=== PATIENT | female | born 1985 | race African-American/Black ===

== ENCOUNTER 2018-04-06 04:13 | Emergency (ER) | payer MEDICAID ==
[2018-04-06] MEDS: ONDANSETRON (ODT) 4 MG TAB ODT (05:02)
[2018-04-06] MEDS: PROMETHAZINE/DM (CUP) PO (05:02)
[2018-04-06] MEDS: ACETAMINOPHEN 500 MG TAB PO ×2 (05:02→05:07)
[2018-04-06] MEDS ORDERED: ONDANSETRON (ODT) 4 MG TAB ODT (05:10)
[2018-04-06] MEDS: METOCLOPRAMIDE 10 MG INJ IM (05:19)
== END 2018-04-06 06:20 | disposition home or self-care (01) ==
LOC: FTE 04:13
DX: J10.1 Influenza due to other identified influenza virus with other respiratory manifestations (principal); F17.210 Nicotine dependence, cigarettes, uncomplicated
CPT/HCPCS: 96372; 99284-25

== ENCOUNTER 2018-04-06 07:41 | Emergency (ER) | payer MEDICAID ==
[2018-04-06] MEDS: SOD CHLORIDE 0.9% 1,000 ML IV (08:35)
[2018-04-06] MEDS: ONDANSETRON 4 MG INJ IV (08:35)
[2018-04-06 08:36] LABS: WHITE BLOOD COUNT 10.3 10^3/ul (4.8-10.8)
[2018-04-06 08:36] LABS: ADD MAN DIFF? NO; BASOPHIL # 0.1 10^3/ul (0.0-0.1); BASOPHILS % 0.8 % (0.0-2.0); EOSINOPHILS % 0.2 % (0.0-7.0); HEMATOCRIT 46.9 % (37.0-47.0); HEMOGLOBIN 15.4 g/dl (12.0-16.0); LYMPHOCYTES # 1.6 10^3/ul (0.8-2.9); LYMPHOCYTES % 15.5 % (15.0-51.0); MEAN CORPUSCULAR HGB CONC 32.8 g/dl (32.0-37.0); MEAN CORPUSCULAR VOLUME 91.2 fl (82.0-101.0); MEAN PLATELET VOLUME 10.3 fl (7.4-10.4); MONOCYTE # 1.1 10^3/ul (0.3-0.9); MONOCYTES % 11.1 % (0.0-11.0); NEUTROPHIL # 7.4 10^3/ul (1.6-7.5); NEUTROPHILS % 72.1 % (39.0-77.0); PLATELET COUNT 290 10^3/UL (140-415); RED BLOOD COUNT 5.14 10^6/ul (4.20-5.40); RED CELL DISTRIBUTION WIDTH 12.9 % (11.5-14.5)
[2018-04-06 09:02] LABS: ANION GAP 16 (5-13); BLOOD UREA NITROGEN 13 mg/dl (7-20); CALCIUM 9.7 mg/dl (8.4-10.2); CARBON DIOXIDE 24 mmol/L (21-31); CHLORIDE 101 mmol/L (97-110); Estimated GFR > 60 mL/min (>60); GLUCOSE 81 mg/dl (70-220); POTASSIUM 5.8 mmol/L (3.5-5.1); SODIUM 141 mmol/L (135-144)
== END 2018-04-06 09:26 | disposition home or self-care (01) ==
LOC: E/R 07:41
DX: B34.9 Viral infection, unspecified (principal); F17.210 Nicotine dependence, cigarettes, uncomplicated
CPT/HCPCS: 36415; 71045; 80048; 81025; 85025; 93005; 96361; 96374; 99285-25

== ENCOUNTER 2018-06-09 01:41 | Emergency (ER) | payer SELFPAY, MEDICAID | END 2018-06-09 03:30 | disposition left against medical advice (07) | LOC: FTE 01:41 | DX: Z53.21 Procedure and treatment not carried out due to patient leaving prior to being seen by health care provider (principal) ==

== ENCOUNTER 2018-06-09 13:40 | Emergency (ER) | payer MEDICAID ==
[2018-06-09] MEDS: LIDOCAINE/MYLANTA 40 ML BTL PO (18:35)
[2018-06-09] MEDS: ONDANSETRON (ODT) 4 MG TAB ODT (18:35)
== END 2018-06-09 18:58 | disposition home or self-care (01) ==
LOC: FTE 13:40
DX: B34.9 Viral infection, unspecified (principal); F17.210 Nicotine dependence, cigarettes, uncomplicated
CPT/HCPCS: 81025; 99283